=== PATIENT | female | born 1960 | race Caucasian/White ===

== ENCOUNTER → 2017-01-24 | Outpatient (CLI) | payer BC | LOC: MC.RAD 01-23 15:00 | DX: Z12.31 Encounter for screening mammogram for malignant neoplasm of breast (principal); N63.10 Unspecified lump in the right breast, unspecified quadrant ==

== ENCOUNTER → 2017-01-31 | Outpatient (CLI) | payer BC | LOC: MC.RAD 13:29 | DX: N60.01 Solitary cyst of right breast (principal); N63.10 Unspecified lump in the right breast, unspecified quadrant ==

== ENCOUNTER → 2019-02-12 | Outpatient (CLI) | payer BC | LOC: MC.RAD 14:58 | DX: Z12.31 Encounter for screening mammogram for malignant neoplasm of breast (principal) ==

== ENCOUNTER → 2020-09-11 | Outpatient (CLI) | payer BC | LOC: MC.RAD 07-31 13:30 | DX: Z12.31 Encounter for screening mammogram for malignant neoplasm of breast (principal) ==